=== PATIENT | female | born 1930 | race Caucasian/White ===

== ENCOUNTER 2018-03-12 10:57 | Emergency (ER) | payer OTHER, BC ==
[~2018-03-12] VITALS: Ht 152.4 cm; Wt 69.6 kg
[~2018-03-12 10:57] MED LIST: CLEOCIN300 MG PO
[2018-03-12 14:58] LABS: HEMATOCRIT 41.1 % (36.0-46.0); HEMOGLOBIN 14.3 G/DL (11.9-15.5); MCH 32.6 PG (29.0-34.0); MCHC 34.8 G/DL (30.0-36.0); MCV 93.6 FL (83-99); PLATELET COUNT 254 K/uL (156-360); RBC DIS.WIDTH-SD 48.2 % (39-53); RED BLOOD COUNT 4.39 M/uL (3.80-5.20); WHITE BLOOD COUNT 6.3 K/uL (4.1-10.2)
[2018-03-12 15:09] LABS: CHLORIDE 103 mEq/L (99-109); POTASSIUM 4.5 mEq/L (3.7-5.4); SODIUM 139 mEq/L (136-147)
[2018-03-12 15:10] LABS: GLUCOSE 91 mg/dL (70-99)
[2018-03-12 15:14] LABS: CREATININE 0.7 mg/dL (0.6-1.3); GFR ESTIMATE (CALCULATED) > 59 mL/min/
[2018-03-12 15:15] LABS: UREA NITROGEN (BUN) 8 mg/dL (9-23)
[2018-03-12 15:45] VITALS: BP 201/91
== END 2018-03-12 15:59 | disposition home or self-care (01) ==
LOC: EME 10:57
PROVIDERS: Nurse Practitioner Family
DX: I10 Essential (primary) hypertension (principal); I48.91 Unspecified atrial fibrillation; E78.5 Hyperlipidemia, unspecified; Z79.01 Long term (current) use of anticoagulants; I73.9 Peripheral vascular disease, unspecified; Z88.5 Allergy status to narcotic agent; Z88.6 Allergy status to analgesic agent; Z87.891 Personal history of nicotine dependence
CPT/HCPCS: 70450; 80048; 81003; 85027; 93005; 99281; 99284